=== PATIENT | female | born 1935 | race Caucasian/White ===

== ENCOUNTER 2016-10-09 13:34 | Inpatient (IN) | payer OTHER, MEDICARE ==
[~2016-10-09] VITALS: Ht 149.9 cm; Wt 52.1 kg
[2016-10-09] VITALS (10 sets, daily range): BP systolic 84–132; BP diastolic 50–64; PULSE 85–125; RESP 16–28; TEMP 98–100.5; O2SAT 77–99
[~2016-10-09 13:34] MED LIST: ALBU.5I NEB; ALBU17I INH; ALLO100T PO; FLUT50I NASAL; GABA100C4 PO; LAMO25 PO; LEXA20TA PO; LOMO PO; NICO21DI2 TD; PRED20 PO; SERO50TA PO; SYMB160A INH; THERM PO; THIA100T PO; VITA-13 PO; Z.0.OXYGEN INH; ZITH250T PO
--- NOTE | 2016-10-09 13:44 | PD ---
HPI Chief Complaint: Respiratory Symptoms Time Seen by Provider: 13:37 Travel History International Travel<30 days: No Contact w/Intl Traveler<30days: No Traveled to known affect area: No History of Present Illness HPI This is an 80-year-old female who has a history of COPD who is on oxygen at home who presents to the emergency department with increasing trouble breathing , constant, severe, worsening over the past 4 days associated with some yellow sputum production and a fever of 100.5. History is limited due to patient's clinical condition. PFSH Past Medical History Arthritis: Yes Asthma: No Autoimmune Disease: No Bipolar Disorder: Yes Anxiety: Yes Depression: Yes Heart Rhythm Problems: No Cancer: Yes (breast CA) Cardiovascular Problems: No High Cholesterol: No Chemotherapy: Yes (18 years ago) Chest Pain: No Congestive Heart Failure: No COPD: Yes Cerebrovascular Accident: No Coronary Artery Disease: No Diabetes: No Diminished Hearing: No Endocrine: No GERD: Yes Genitourinary: No Hiatal Hernia: No Immune Disorder: No Kidney Stones: No Musculoskeletal: Yes (FX R PELVIS 2013 FX R HUMERUS) Neurologic: Yes Psychiatric: Yes (Reports being diagnosed with Bipolar in 2009. 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)) Genitourinary Surgery: No Hysterectomy: Yes Insulin Pump: No Joint Replacement: No Mastectomy: Yes (LT) Neurologic Surgery: No Oral Surgery: No Pacemaker: No Thoracic Surgery: No Other Surgery: Yes (PART OF COLON REMOVED) Social History Alcohol Use: Yes (2-3 COCKTAILS PER DAY) Tobacco Use: Yes (quit 2 days ago) Substance Use: No Allergies-Medications (Allergen,Severity, Reaction): Coded Allergies: Codeine (Verified Adverse Reaction, Severe, Nausea/Vomiting, 09/11/16) Reported Meds & Prescriptions Reported Meds & Active Scripts Active Reported Lomotil (Diphenoxylate-Atropine) 2.5-0.025 Mg Tab 1 Tab PO 2-3 TIMES DAILY PRN Escitalopram (Escitalopram Oxalate) 20 Mg Tab 20 Mg PO DAILY Theragran-M (Multiple Vitamins W/ Minerals) 1 Tab 1 Tab PO DAILY Seroquel (Quetiapine Fumarate) 50 Mg Tab 100 Mg PO HS Allopurinol 100 Mg Tab 100 Mg PO DAILY Gabapentin 100 Mg Cap 100 Mg PO TID Lamictal (Lamotrigine) 25 Mg Tab 50 Mg PO BID Vitamin B-1 (Thiamine HCl) 100 Mg Tab 100 Mg PO DAILY Vitamin D3 (Cholecalciferol) 2,000 Unit Tab 2,000 Units PO DAILY Review of Systems ROS Limitations: Clinical Condition Physical Exam Narrative GENERAL: Frail elderly female in moderate respiratory distress SKIN: Warm and dry. HEAD: Atraumatic. Normocephalic. EYES: Pupils equal and round. No injection or drainage. ENT: Moist mucous membranes NECK: Trachea midline. CARDIOVASCULAR: Regular rate and rhythm. No murmur appreciated. RESPIRATORY: Using accessory muscles, poor air movement, prolonged expiratory phase, speaking 2-3 word sentences. GASTROINTESTINAL: Abdomen soft, non-tender, nondistended. MUSCULOSKELETAL: No obvious deformities. NEUROLOGICAL: Awake and alert. No obvious cranial nerve deficits. Moving all extremities. PSYCHIATRIC: Appropriate mood and affect; insight and judgment normal. Data Data Last Documented VS Vital Signs Date Time Temp Pulse Resp B/P Pulse Ox O2 Delivery O2 Flow Rate FiO2 10/09/16 13:46 97 Non-Rebreather 10/09/16 13:38 28 10/09/16 13:35 100.5 125 132/64 Orders Electrocardiogram (10/09/16 ) Complete Blood Count With Diff (10/09/16 13:41) Comprehensive Metabolic Panel (10/09/16 13:41) B-Type Natriuretic Peptide (10/09/16 13:41) Act Partial Throm Time (Ptt) (10/09/16 13:41) Prothrombin Time / Inr (Pt) (10/09/16 13:41) Troponin I (10/09/16 13:41) Arterial Blood Gas (Abg) (10/09/16 13:41) Influenzae A/B Antigen (10/09/16 13:41) Iv Access Insert/Monitor (10/09/16 13:41) Ecg Monitoring (10/09/16 13:41) Oximetry (10/09/16 13:41) Oxygen Administration (10/09/16 13:41) Chest, Single Ap (10/09/16 13:41) Sodium Chloride 0.9% Flush (Ns Flush) (10/09/16 13:45) Methylprednisolone So Succ Inj (Solumedr (10/09/16 13:45) Albuterol-Ipratropium Neb (Duoneb Neb) (10/09/16 13:45) Resp Bipap / Cpap Non Invas Vt (10/09/16 13:41) Blood Culture (10/09/16 14:24) Lactic Acid (10/09/16 14:24) Cefepime Inj (Maxipime Inj) (10/09/16 14:30) Azithromycin Inj (Zithromax Inj) (10/09/16 14:30) Acetaminophen (Tylenol) (10/09/16 14:30) Sodium Chlor 0.9% 1000 Ml Inj (Ns 1000 M (10/09/16 16:00) Sodium Chlor 0.9% 1000 Ml Inj (Ns 1000 M (10/09/16 16:00) Admit Order (Ed Use Only) (10/09/16 16:07) Labs Laboratory Tests Test 10/09/16 14:30 White Blood Count 18.0 TH/MM3 Red Blood Count 4.82 MIL/MM3 Hemoglobin 14.1 GM/DL Hematocrit 42.4 % Mean Corpuscular Volume 87.9 FL Mean Corpuscular Hemoglobin 29.2 PG Mean Corpuscular Hemoglobin 33.2 % Concent Red Cell Distribution Width 14.4 % Platelet Count 143 TH/MM3 Mean Platelet Volume 9.7 FL Neutrophils (%) (Auto) 80.5 % Lymphocytes (%) (Auto) 9.1 % Monocytes (%) (Auto) 10.3 % Eosinophils (%) (Auto) 0.0 % Basophils (%) (Auto) 0.1 % Neutrophils # (Auto) 14.5 TH/MM3 Lymphocytes # (Auto) 1.6 TH/MM3 Monocytes # (Auto) 1.9 TH/MM3 Eosinophils # (Auto) 0.0 TH/MM3 Basophils # (Auto) 0.0 TH/MM3 CBC Comment AUTO DIFF Differential Total Cells 100 Counted Neutrophils % (Manual) 47 % Band Neutrophils % 31 % Lymphocytes % 8 % Monocytes % 10 % Neutrophils # (Manual) 14.8 TH/MM3 Metamyelocytes 4 % Differential Comment FINAL DIFF MANUAL Toxic Granulation 1+ Toxic Vacuolation PRESENT Platelet Estimate LOW Platelet Morphology Comment NORMAL Red Cell Morphology Comment NORMAL Prothrombin Time 14.4 SEC Prothromb Time International 1.3 RATIO Ratio Activated Partial 32.2 SEC Thromboplast Time Sodium Level 135 MEQ/L Potassium Level 4.3 MEQ/L Chloride Level 97 MEQ/L Carbon Dioxide Level 30.0 MEQ/L Anion Gap 8 MEQ/L Blood Urea Nitrogen 21 MG/DL Creatinine 1.05 MG/DL Estimat Glomerular Filtration 50 ML/MIN Rate Random Glucose 114 MG/DL Lactic Acid Level 2.8 mmol/L Calcium Level 8.6 MG/DL Total Bilirubin 1.1 MG/DL Aspartate Amino Transf 29 U/L (AST/SGOT) Alanine Aminotransferase 25 U/L (ALT/SGPT) Alkaline Phosphatase 118 U/L Troponin I LESS THAN 0.02 NG/ML B-Type Natriuretic Peptide 344 PG/ML Total Protein 6.8 GM/DL Albumin 3.1 GM/DL MDM Medical Decision Making Medical Screen Exam Complete: Yes Emergency Medical Condition: Yes Interpretation(s) Fever, tachycardia, tachypnea Leukocytosis 31% bandemia Lactic acid is 2.8 BNP is 344 Chest x-ray: Worsening bilateral infiltrates Differential Diagnosis Pneumonia, COPD exacerbation, urinary tract infection Narrative Course This is an 80-year-old female who presents to the emergency department with a history of COPD with increasing difficulty breathing and fever. She was in respiratory distress on arrival with accessory muscle use unable to speak full sentences. She was placed on BiPAP and given serial DuoNeb's as well as IV steroids. Cultures were obtained and the patient was given cefepime and azithromycin. She was given IV hydration. She is found to be septic with a 31 % bandemia and a lactic acid of 2.8. Patient will be admitted to the intensive care area and it for close observation given her age. Critical Care Narrative Aggregate critical care time was 45 minutes. Time to perform other separately billable procedures was not included in the critical care time. My time did not include minutes spent treating any other patients simultaneously or on activities that did not directly contribute to the patient's treatment. The services I provided to this patient were to treat and/or prevent clinically significant deterioration that could result in: Disability, I provided critical care services requiring my management, as noted below: Chart data review, documentation time, medication orders and management, vital sign assessments/reviewing monitor data, ordering and reviewing lab tests, ordering and interpreting/reviewing x-rays and diagnostic studies, care of the patient and discussion of the patient with the admitting physicians. Diagnosis Primary Impression: probable bibasilar pneumonia Admitting Information Admitting Physician Requests: Admit Corine hPelps MD Oct 09, 2016 13:44
[2016-10-09] MEDS ORDERED: SODIUM CHLORIDE 0.9% FLUSH 5 ML FLUSH IVF PRN (13:45)
[2016-10-09] MEDS ORDERED: methylPREDNISolone SOD SUCC 125 MG/2 ML VIAL IVP ONE (13:45)
--- NOTE | 2016-10-09 14:14 | RADRPT ---
EXAM DATE/TIME: 10/09/2016 13:43 [facility] COMPARISON: CHEST SINGLE AP, September 11, 2016, 10:51. INDICATIONS : Shortness of breath. MEDICAL HISTORY : Chronic obstructive pulmonary disease. Carcinoma, breast. Smoker. SURGICAL HISTORY : Mastectomy, left. ENCOUNTER: Initial ACUITY: 1 day PAIN SCORE: 0/10 LOCATION: Bilateral chest FINDINGS: There is cardiomegaly, hyperinflation and increasing alveolar and interstitial opacity in the right m id to lower lung zone and left midlung. There are no effusions. Left axillary clips and right shoulde r arthroplasty. Calcified granuloma left lung base. CONCLUSION: Worsening infiltrates bilaterally. Angel Yanez MD on October 09, 2016 at 14:12 Board Certified Radiologist. This report was verified electronically.
[2016-10-09] MEDS ORDERED: CEFEPIME INJ 2,000 MG in SODIUM CHLORIDE 0.9% INJ 100 ML IV ONE (14:30)
[2016-10-09] MEDS ORDERED: AZITHROMYCIN INJ 500 MG in SODIUM CHLOR 0.9% 250 ML INJ 250 ML IV ONE (14:30)
[2016-10-09] MEDS ORDERED: ACETAMINOPHEN 325 MG TAB PO ONE (14:30)
[2016-10-09] MEDS: RESP: ALBUTEROL 2.5 MG/IPRATROPIUM 0.5 MG NEB (SCH) INH ×3 (14:38→23:06)
[2016-10-09 14:59] LABS: AUTOMATED NEUTROPHIL # 14.5 TH/MM3 (1.8-7.7); BASOPHIL % 0.1 % (0.0-2.0); HEMATOCRIT 42.4 % (35.0-46.0); LYMPH % 9.1 % (9.0-44.0); LYMPHOCYTE # 1.6 TH/MM3 (1.0-4.8); MEAN CELL VOLUME 87.9 FL (80.0-100.0); MEAN CORPUSCULAR HEMOGLOBIN 29.2 PG (27.0-34.0); MEAN CORPUSCULAR HGB CONC 33.2 % (32.0-36.0); MONO % 10.3 % (0.0-8.0); NEUT % 80.5 % (16.0-70.0); PLATELET COUNT 143 TH/MM3 (150-450); RED BLOOD COUNT 4.82 MIL/MM3 (4.00-5.30); RED CELL DISTRIBUTION WIDTH 14.4 % (11.6-17.2)
[2016-10-09 15:02] LABS: HEMO FLAGS AUTO DIFF
[2016-10-09 15:12] LABS: APTT (PATIENT) 32.2 SEC (24.3-30.1); INTERNATIONAL NORMALIZED RATIO 1.3 RATIO; PROTHROMBIN TIME - PATIENT 14.4 SEC (9.8-11.6)
[2016-10-09 15:14] LABS: ALT (GPT) 25 U/L (10-53); ANION GAP 8 MEQ/L (5-15); AST (GOT) 29 U/L (15-37); BLOOD UREA NITROGEN 21 MG/DL (7-18); CHLORIDE 97 MEQ/L (98-107); GLOMERULAR FILTRATION RATE 50 ML/MIN (>89); POTASSIUM 4.3 MEQ/L (3.5-5.1); SODIUM (NA) 135 MEQ/L (136-145)
[2016-10-09 15:18] LABS: ALKALINE PHOSPHATASE 118 U/L (45-117); TOTAL BILIRUBIN ADULT 1.1 MG/DL (0.2-1.0)
[2016-10-09 15:32] LABS: BANDS 31 % (0-6); METAMYELOCYTES 4 % (0-1); NEUTROPHIL # MANUAL DIFF 14.8 TH/MM3 (1.8-7.7); POLYS (SEG NEUTROPHILS) 47 % (16-70); WBC DIFF SAMPLE 100
[2016-10-09 15:33] LABS: PLATELET ESTIMATE SMEAR LOW (NORMAL); PLATELET MORPHOLOGY NORMAL (NORMAL); SCAN/DIFF FINAL DIFF MANUAL; TOXIC GRANULATION 1+ (NORMAL); TOXIC VACUOLATION PRESENT (NONE SEEN)
[2016-10-09] MEDS ORDERED: VITA200012 PO (15:59)
[2016-10-09] MEDS ORDERED: LAMO25 PO (15:59)
[2016-10-09] MEDS ORDERED: LOMO2.5T PO (15:59)
[2016-10-09] MEDS ORDERED: ESCI20TA PO (15:59)
[2016-10-09] MEDS ORDERED: SERO50TA PO (15:59)
[2016-10-09] MEDS ORDERED: VITA100T54 PO (15:59)
[2016-10-09] MEDS ORDERED: THERTAB27 PO (15:59)
[2016-10-09] MEDS ORDERED: ALLO100T PO (15:59)
[2016-10-09] MEDS ORDERED: GABA100C4 PO (15:59)
[2016-10-09] MEDS ORDERED: SODIUM CHLOR 0.9% 1000 ML INJ 1,000 ML IV SCH ×2 (16:00)
[2016-10-09] MEDS ORDERED: MISCELLANEOUS NURSING INFORMATION XX SCH (16:15)
[2016-10-09] MEDS ORDERED: POTASSIUM PHOSPHATE INJ 30 MMOL in SODIUM CHLOR 0.9% 250 ML INJ 250 ML IV PRN (16:15)
[2016-10-09] MEDS ORDERED: POTASSIUM CHLOR 20 MEQ PREMIX 100 ML IV PRN ×2 (16:15)
[2016-10-09] MEDS ORDERED: DEXTROSE 50% IN WATER 50 ML VIAL(D50) IV PUSH PRN (16:15)
[2016-10-09] MEDS ORDERED: ACETAMINOPHEN 325 MG TAB PO PRN (16:15)
[2016-10-09] MEDS ORDERED: POTASSIUM PHOSPHATE MONOBASIC 500 MG TAB PO PRN (16:15)
[2016-10-09] MEDS ORDERED: POTASSIUM PHOSPHATE MONOBASIC 500 MG TAB PO/TUBE PRN (16:15)
[2016-10-09] MEDS ORDERED: POTASSIUM CHLOR 40 MEQ PREMIX 100 ML IV PRN ×2 (16:15)
[2016-10-09] MEDS ORDERED: MAGNESIUM OXIDE 400 MG TAB PO PRN (16:15)
[2016-10-09] MEDS ORDERED: ONDANSETRON HCL 4 MG/2 ML VIAL IV PRN (16:15)
[2016-10-09] MEDS ORDERED: POTASSIUM CL 40 MEQ/30 ML LIQ UDC PO/TUBE PRN ×2 (16:15)
[2016-10-09] MEDS ORDERED: MAGNESIUM SULFATE INJ 4 GM in SODIUM CHLORIDE 0.9% INJ 92 ML IV PRN (16:15)
[2016-10-09] MEDS ORDERED: CHLORHEXIDINE GLUCONATE 2 % 1 PACK (2 CLOTHS) TOP PRN (16:15)
[2016-10-09] MEDS ORDERED: SODIUM CHLORIDE 0.9% FLUSH 5 ML FLUSH IV FLUSH PRN (16:15)
[2016-10-09] MEDS ORDERED: RESP: ALBUTEROL 2.5 MG/IPRATROPIUM 0.5 MG NEB (PRN) INH (16:15)
[2016-10-09] MEDS ORDERED: SODIUM PHOSPHATE INJ 30 MMOL in SODIUM CHLOR 0.9% 250 ML INJ 240 ML IV PRN (16:15)
[2016-10-09] MEDS ORDERED: MAGNESIUM SULFATE INJ 2 GM in SODIUM CHLORIDE 0.9% INJ 96 ML IV PRN (16:15)
--- NOTE | 2016-10-09 17:26 | HHI.HP ---
[facility] Service Critical Care Medicine Primary Care Physician Clem Harris MD Admission Diagnosis pneumonia, sepsis Diagnosis: Chief Complaint: shortness of breath Travel History International Travel<30 Days: No Contact w/Intl Traveler <30 Da: No Traveled to Known Affected Are: No History of Present Illness this is an 80yF with h/o o2 dependent COPD on 2L o2 by NC at night at home, bipolar disorder, and peripheral neuropathy after a pelvic fracture who presented with 1 week of increasing shortness of breath, fatigue, chills, weakness, fatigue, lightheadedness. She was found to have a RLL pneumonia on CXR and a leukocytosis of 18. She denies chest pain, N/V/D, syncope. She endorses fever. she states that she is fairly ambulatory and can do most all of her own ADLs except complex ones like grocery shopping. She states that she has not been doing these as much over the last week due to fatigue. Of note, over the past 12 months, she has been hospitalized a number of times for various health concerns, including a recent diagnosis of Bipolar disorder. I had a discussion with the patient about some of the goals of her care. When I brought up intubation and mechanical ventilation, she states she would not want that, as it would be uncomfortable, and she would much rather be made comfortable and in peace than undergo a course of mechanical ventilation. Also, when discussing CPR, she states she would rather naturally and not undergo CPR, if it came to that. Otherwise, our goals remain aggressive. congruent with the patient's wishes, I have made her DNR/DNI. Her would be her medical decision-maker if she were to become incapacitated, and she has documentation of this. Review of Systems Constitutional: COMPLAINS OF: Fatigue, Fever, Chills, Dizziness, DENIES: Diaphoretic episodes Respiratory: COMPLAINS OF: Cough, Wheezing, Sputum production, Shortness of breath, DENIES: Hemoptysis Cardiovascular: COMPLAINS OF: Dyspnea on Exertion, DENIES: Chest pain, Palpitations, Syncope, Lower Extremity Edema Gastrointestinal: DENIES: Abdominal pain, Constipation, Diarrhea, Nausea, Vomiting Neurologic: DENIES: Headache, Localized weakness Past Family Social History Allergies: Coded Allergies: Codeine (Verified Adverse Reaction, Severe, Nausea/Vomiting, 09/11/16) Past Medical History Arthritis Bipolar disorder, diagnosed in 2009 Anxiety Depression History of breast cancer History of prior chemotherapy 18 years ago COPD on 2 L home oxygen at night GERD Right-sided pelvic fracture 2012 Right-sided humerus fracture 2012 Left eye blindness Past Surgical History Colon resection Cholecystectomy Appendectomy Left detached retina Hysterectomy Mastectomy on the left Reported Medications Nicotine Patch (Nicotine) 21 Mg/24 Hr Patch 1 Patch TD DAILY Prednisone 20 Mg Tab 40 Mg PO DAILY Zithromax (Azithromycin) 250 Mg Tab 500 Mg PO Q24H Vitamin D3 (Cholecalciferol) 1,000 Unit Tab 2,000 Units PO 2 DAILY Ventolin Hfa (Albuterol Sulfate) 108 Mcg/Act Aer 2 Puff INH Q6HR Thiamine HCl 100 Mg Tab 100 Mg PO DAILY Seroquel 50 mg (Quetiapine Fumarate) 50 Mg Tab 50 Mg PO DIRECTED 1 in a.m. 2 at at bedtime Lamictal (Lamotrigine) 25 Mg Tab 50 Mg PO 2 PO BID Fluticasone Propionate 50 Mcg/Act Spr 1 [place] NASAL BID Lomotil (Diphenoxylate HCl/Atropine) 1 Tab Tab 1 Tab PO TID Symbicort (Budesonide/Formoterol Fumarate) 160 Mcg/4.5 Mcg Aer 2 Puff INH Q12HR Oxygen (O2) (Miscellaneous Medication) Inha 2 L INH CONTINUOUS 30 Days Thera M Plus (Multivitamins/Minerals Therap) 1 Tab Tab 1 Tab PO DAILY 30 Days Thiamine HCl 100 Mg Tab 100 Mg PO DAILY 30 Days Lomotil (Diphenoxylate HCl/Atropine) 1 Tab Tab 1 Tab PO TID 30 Days Symbicort (Budesonide/Formoterol Fumarate) 160 Mcg/4.5 Mcg Aer 2 Puff INH Q12HR 30 Days Gabapentin 100 Mg Cap 100 Mg PO TID Allopurinol 100 Mg Tab 100 Mg PO DAILY Proventil Conc Ud 0.5% (2.5 Mg/0.5 Ml) (Albuterol Sulfate) 2.5 Mg/0.5 Ml Inha 2.5 Mg NEB Q6HR NEB Lexapro (Escitalopram Oxalate) 20 Mg Tab 20 Mg PO DAILY Active Ordered Medications See MAR Family History Reviewed and found to be noncontributory to her acute illness Social History To 3 cocktails today. Active smoker. Denies drugs of abuse. Physical Exam Vital Signs Vital Signs Date Time Temp Pulse Resp B/P Pulse Ox O2 Delivery O2 Flow Rate FiO2 10/09/16 13:46 97 Non-Rebreather 10/09/16 13:38 28 93 Non-Rebreather 10/09/16 13:35 100.5 125 28 132/64 77 Physical Exam GENERAL: Elderly female, lying in bed, mild distress due to dyspnea HEENT: Left pupil 4 mm, nonreactive. Right pupil 2 mm and reactive. Mucous membranes are moist. NECK: Trachea is midline. There is no JVD. CHEST: Mildly labored respirations. Mild tachypnea. Nasal cannula oxygen. SPO2 96%. Coarse crackles in the bilateral upper lobes, scant wheezes in the bilateral lung kapadia, significant fine rales in the right lower lung field. CARDIOVASCULAR: Normal rate, regular rhythm. S1 and S2 without appreciable murmurs. ABDOMEN: Soft, nontender, nondistended. No guarding. MUSCULOSKELETAL: Peripheral edema. Distal pulses 2+. NEUROLOGICAL: RASS 0. CAM -. Follows commands in all four extremities. no gross focal motor or sensory deficits. Laboratory Laboratory Tests Test 10/09/16 14:30 White Blood Count 18.0 Red Blood Count 4.82 Hemoglobin 14.1 Hematocrit 42.4 Mean Corpuscular Volume 87.9 Mean Corpuscular Hemoglobin 29.2 Mean Corpuscular Hemoglobin 33.2 Concent Red Cell Distribution Width 14.4 Platelet Count 143 Mean Platelet Volume 9.7 Neutrophils (%) (Auto) 80.5 Lymphocytes (%) (Auto) 9.1 Monocytes (%) (Auto) 10.3 Eosinophils (%) (Auto) 0.0 Basophils (%) (Auto) 0.1 Neutrophils # (Auto) 14.5 Lymphocytes # (Auto) 1.6 Monocytes # (Auto) 1.9 Eosinophils # (Auto) 0.0 Basophils # (Auto) 0.0 CBC Comment AUTO DIFF Differential Total Cells 100 Counted Neutrophils % (Manual) 47 Band Neutrophils % 31 Lymphocytes % 8 Monocytes % 10 Neutrophils # (Manual) 14.8 Metamyelocytes 4 Differential Comment FINAL DIFF MANUAL Toxic Granulation 1+ Toxic Vacuolation PRESENT Platelet Estimate LOW Platelet Morphology Comment NORMAL Red Cell Morphology Comment NORMAL Prothrombin Time 14.4 Prothromb Time International 1.3 Ratio Activated Partial 32.2 Thromboplast Time Sodium Level 135 Potassium Level 4.3 Chloride Level 97 Carbon Dioxide Level 30.0 Anion Gap 8 Blood Urea Nitrogen 21 Creatinine 1.05 Estimat Glomerular Filtration 50 Rate Random Glucose 114 Lactic Acid Level 2.8 Calcium Level 8.6 Total Bilirubin 1.1 Aspartate Amino Transf 29 (AST/SGOT) Alanine Aminotransferase 25 (ALT/SGPT) Alkaline Phosphatase 118 Troponin I LESS THAN 0.02 B-Type Natriuretic Peptide 344 Total Protein 6.8 Albumin 3.1 Date/Time Procedure Status Source Growth 10/09/16 14:40 Aerobic Blood Culture Received Blood Peripheral Pending 10/09/16 14:40 Anaerobic Blood Culture Received Blood Peripheral Pending Result Diagram: 10/09/16 1430 10/09/16 1430 Assessment and Plan Assessment and Plan Assessment: This is an 80-year-old female with history of oxygen dependent COPD and bipolar disorder who presents with acute shortness of breath and fatigue and found to have a right lower lobe pneumonia and likely COPD exacerbation. Given her age and medical comorbidities, I think is completely appropriate to admit her to the ICU for close observation. Patient states she does not like her BiPAP mask, and acid if she could not use it. I counseled her this was a risk if she was willing to take it that she would get worse off the BiPAP. Although, if this is what the patient wishes, she does understand that she is an increased risk of arthritic conversation, and also knows that she is a DNI. I gave her the option and told her it was okay. She took herself off BiPAP, understanding this. Plan: 1. COPD Exacerbation -- methylprednisolone 60mg iv q12h -- nebs q4h and q2h prn -- BiPAP as needed. -- wean o2 by NC for goal spo2 > 90% 2. RLL community acquired pneumonia -- Continue cefepime 2gm iv q8h -- continue azithromycin 500mg iv q24h -- f/u sputum cultures, blood cultures, urine cultures 3. Bipolar disorder -- continue home psych meds 4. Peripheral neuropathy -- continue home gabapentin 100mg qhs 5. Acute protein calorie malnutrition- moderate -- NPO for now. if she remains stable, will perform bedside swallow assessment and slowly advance him to clears. 6. Prophylaxis -- SCDs, SQH -- does not meet evidence based criteria for GI prophylaxis at this time. 7. Code Status -- DNR/DNI per the patient's request. --daily CBC, BMP. Code Status DNR/DNI Ronnie Oviedo MD Oct 09, 2016 17:25
[2016-10-09] MEDS: SODIUM CHLOR 0.9% 1000 ML INJ 1,000 ML IV SCH (17:42)
[2016-10-09 19:56] LABS: BLOOD GAS BASE EXCESS 3.1 mmol/L (-2-2); BLOOD GAS CARBOXYHEMOGLOBIN 2.3 % (0-4); BLOOD GAS HCO3 29 mmol/L (22-26); BLOOD GAS METHEMOGLOBIN 2.2 % (0-2); BLOOD GAS O2 HGB SATURATION 94 % (90-100); BLOOD GAS OXYGEN CONTENT 18.6 Vol % (12.0-20.0); BLOOD GAS PCO2 55 mmHg (38-42); BLOOD GAS PO2 132 mmHG (61-120); BLOOD GAS TOTAL HGB 13.9 G/DL (12.0-16.0); TEMP CORR TO 98.6
[2016-10-09 19:57] LABS: CRITICAL VALUE YES; DRAW SITE RT RADIAL; FIO2 100 %; LITER FLOW 15 L/M; NUMBER OF ARTERIAL PUNCTURES 1; OXYGEN DEVICE NONREBREATHER; STAT YES; ULNAR PULSE PRESENT
[2016-10-09 19:58] LABS: BLOOD GAS BASE EXCESS 4.1 mmol/L (-2-2); BLOOD GAS CARBOXYHEMOGLOBIN 2.1 % (0-4); BLOOD GAS HCO3 29 mmol/L (22-26); BLOOD GAS METHEMOGLOBIN 2.2 % (0-2); BLOOD GAS O2 HGB SATURATION 91 % (90-100); BLOOD GAS OXYGEN CONTENT 17.7 Vol % (12.0-20.0); BLOOD GAS PCO2 54 mmHg (38-42); BLOOD GAS PO2 75 mmHG (61-120); BLOOD GAS TOTAL HGB 13.9 G/DL (12.0-16.0); TEMP CORR TO 98.6
[2016-10-09 19:59] LABS: CRITICAL VALUE YES; OXYGEN DEVICE BIPAP
[2016-10-09 20:00] LABS: DRAW SITE RT RADIAL; FIO2 50 %; NUMBER OF ARTERIAL PUNCTURES 1; STAT NO; ULNAR PULSE PRESENT; VENT SETTINGS CPAP 5/PS 10
[2016-10-09] MEDS: SODIUM CHLORIDE 0.9% FLUSH 5 ML FLUSH IV FLUSH SCH (21:00)
[2016-10-09] MEDS: HEPARIN SODIUM - SQ 10,000 UNITS/ML VIAL SQ SCH (21:18)
[2016-10-09] MEDS: INSULIN NovoLIN REGULAR SUPPLEMENTAL SCALE SQ SCH ×2 (21:19→23:50)
[2016-10-09] MEDS: GABAPENTIN 100 MG CAP PO SCH (21:30)
[2016-10-09] MEDS: QUEtiapine FUMARATE 100 MG TAB PO SCH (21:31)
[2016-10-09] MEDS: DOCUSATE SODIUM 50 MG/SENNA 8.6 MG TAB PO SCH (21:31)
[2016-10-09] MEDS: lamoTRIgine 25 MG TAB PO SCH (21:31)
[2016-10-09] MEDS ORDERED: SODIUM CHLOR 0.9% 1000 ML INJ 1,000 ML IV ONE (23:15)
[2016-10-10] VITALS (14 sets, daily range): BP systolic 94–133; BP diastolic 50–75; PULSE 72–102; RESP 16–24; TEMP 97.5–98.6; O2SAT 94–96
[2016-10-10] MEDS: CHLORHEXIDINE GLUCONATE 2 % 1 PACK (2 CLOTHS) TOP SCH (00:55)
[2016-10-10] MEDS: HEPARIN SODIUM - SQ 10,000 UNITS/ML VIAL SQ SCH ×3 (00:55→17:44)
[2016-10-10] MEDS ORDERED: methylPREDNISolone SOD SUCC 125 MG/2 ML VIAL IV PUSH SCH (02:00)
[2016-10-10] MEDS: RESP: ALBUTEROL 2.5 MG/IPRATROPIUM 0.5 MG NEB (SCH) INH ×5 (03:24→23:56)
[2016-10-10] MEDS: INSULIN NovoLIN REGULAR SUPPLEMENTAL SCALE SQ SCH ×4 (05:26→23:58)
[2016-10-10] MEDS: CEFEPIME INJ 2,000 MG in SODIUM CHLORIDE 0.9% INJ 100 ML IV SCH ×2 (05:26→17:43)
--- NOTE | 2016-10-10 06:05 | RADRPT ---
EXAM DATE/TIME: 10/10/2016 05:03 [facility] COMPARISON: CHEST SINGLE AP, October 09, 2016, 13:43. INDICATIONS : Short of breath. MEDICAL HISTORY : Chronic obstructive pulmonary disease. Carcinoma, breast. Smoker. SURGICAL HISTORY : Mastectomy, left. ENCOUNTER: Subsequent ACUITY: 2 days PAIN SCORE: 0/10 LOCATION: Bilateral chest FINDINGS: A single portable frontal view of the chest shows bilateral pulmonary infiltrates. This is most prono unced within the right base. No significant change from the prior study. Tiny effusions. Heart is nor mal in size. Prosthetic humeral head on the right. CONCLUSION: No significant change. Julio Pagan Jr., MD on October 10, 2016 at 6:02 Board Certified Radiologist. This report was verified electronically.
[2016-10-10 06:15] LABS: BLOOD GAS BASE EXCESS -1.7 mmol/L (-2-2); BLOOD GAS CARBOXYHEMOGLOBIN 1.3 % (0-4); BLOOD GAS HCO3 24 mmol/L (22-26); BLOOD GAS METHEMOGLOBIN 1.3 % (0-2); BLOOD GAS O2 HGB SATURATION 89 % (90-100); BLOOD GAS OXYGEN CONTENT 15.9 Vol % (12.0-20.0); BLOOD GAS TOTAL HGB 12.7 G/DL (12.0-16.0)
[2016-10-10 06:16] LABS: TEMP CORR TO 98.6
[2016-10-10 06:18] LABS: CRITICAL VALUE YES
[2016-10-10 06:19] LABS: BLOOD GAS PCO2 50 mmHg (38-42); BLOOD GAS PO2 69 mmHg (61-120); LITER FLOW 4 L/M; OXYGEN DEVICE NASAL CANNULA
[2016-10-10 06:20] LABS: DRAW SITE RT RADIAL; FIO2 35 %; NUMBER OF ARTERIAL PUNCTURES 1; STAT NO; ULNAR PULSE PRESENT
[2016-10-10 06:51] LABS: HEMATOCRIT 39.3 % (35.0-46.0); MEAN CELL VOLUME 89.1 FL (80.0-100.0); MEAN CORPUSCULAR HEMOGLOBIN 29.2 PG (27.0-34.0); MEAN CORPUSCULAR HGB CONC 32.7 % (32.0-36.0); PLATELET COUNT 132 TH/MM3 (150-450); RED BLOOD COUNT 4.41 MIL/MM3 (4.00-5.30); RED CELL DISTRIBUTION WIDTH 14.5 % (11.6-17.2); REVIEW FLAG FINAL
[2016-10-10 07:05] LABS: BICARBONATE 25.9 MEQ/L (21.0-32.0); POTASSIUM 4.1 MEQ/L (3.5-5.1)
[2016-10-10] MEDS: DOCUSATE SODIUM 50 MG/SENNA 8.6 MG TAB PO SCH ×2 (09:00→20:57)
[2016-10-10] MEDS: SODIUM CHLORIDE 0.9% FLUSH 5 ML FLUSH IV FLUSH SCH ×2 (09:00→20:58)
[2016-10-10] MEDS: ESCITALOPRAM OXALATE 20 MG TAB PO SCH (11:04)
[2016-10-10] MEDS: ALLOPURINOL 100 MG TAB PO SCH (11:04)
[2016-10-10] MEDS: THIAMINE HCL 100 MG TAB PO SCH (11:04)
[2016-10-10] MEDS: lamoTRIgine 25 MG TAB PO SCH ×2 (11:04→20:58)
[2016-10-10] MEDS: GABAPENTIN 100 MG CAP PO SCH ×3 (11:04→17:44)
--- NOTE | 2016-10-10 13:29 | HHI.PR ---
Subjective Remarks Follow-up pneumonia/ 10/10/16-patient seen and examined; reports significant improvement or shortness of breath denies any cough. Currently afebrile. She thinks she does not need to use BiPAP. Objective Vitals Vital Signs Date Time Temp Pulse Resp B/P Pulse Ox O2 Delivery O2 Flow Rate FiO2 10/10/16 07:50 94 Nasal Cannula 3.00 10/10/16 06:00 94 10/10/16 04:00 75 10/10/16 03:00 98.6 72 24 98/55 95 10/10/16 02:00 72 10/10/16 00:00 85 10/09/16 23:00 85 24 110/52 97 10/09/16 22:45 98.0 85 16 91/55 90 10/09/16 21:00 92 16 89/53 94 Nasal Cannula 2 10/09/16 20:20 93 Nasal Cannula 5.00 10/09/16 20:00 87 16 95/53 93 Nasal Cannula 2 10/09/16 19:00 88 16 91/50 95 Nasal Cannula 2 10/09/16 17:44 94 22 91/54 99 Nasal Cannula 5 10/09/16 17:02 102 22 84/52 92 Nasal Cannula 5 10/09/16 13:58 99 75 10/09/16 13:46 97 Non-Rebreather 10/09/16 13:38 28 93 Non-Rebreather 10/09/16 13:35 100.5 125 28 132/64 77 I/O 10/09/16 10/09/16 10/09/16 10/10/16 10/10/16 10/10/16 07:00 15:00 23:00 07:00 15:00 23:00 Intake Total 1600 ml Balance 1600 ml Intake IV Total 1600 ml # Voids 3 Result Diagram: 10/10/16 0553 10/10/16 0553 Imaging Last Impressions Chest X-Ray 10/10/16 0600 Signed Impressions: Service Date/Time: Monday, October 10, 2016 05:03 - CONCLUSION: No significant change. Julio Pagan Jr., MD Objective Remarks GENERAL: NAD SKIN: Warm and dry. HEAD: Normocephalic. EYES: No scleral icterus. No injection or drainage. NECK: Supple, trachea midline. No JVD or lymphadenopathy. CARDIOVASCULAR: Regular rate and rhythm without murmurs, gallops, or rubs. RESPIRATORY: Breath sounds equal bilaterally. No accessory muscle use. GASTROINTESTINAL: Abdomen soft, non-tender, nondistended. MUSCULOSKELETAL: No cyanosis, or edema. BACK: Nontender without obvious deformity. No CVA tenderness. A/P Problem List: (1) COPD with exacerbation ICD Code: J44.1 Status: Acute (2) Community acquired pneumonia ICD Code: J18.9 Status: Acute Assessment and Plan 80-year-old female with 1. COPD Exacerbation -- Change methylprednisolone to 40mg iv q12h; add Symbicort and Spiriva -- nebs q4h and q2h prn -- BiPAP as needed. -- wean o2 by NC for goal spo2 > 90% 2. RLL community acquired pneumonia -- Continue cefepime 2gm iv q8h -- continue azithromycin 500mg iv q24h -- f/u sputum cultures, blood cultures, urine cultures 3. Bipolar disorder -- continue home psych meds 4. Peripheral neuropathy -- continue home gabapentin 100mg qhs 5. Acute protein calorie malnutrition- moderate -- Past swallow eval, start healthy diet and add ensure 3 times a day with each meal 6. Prophylaxis -- SCDs, SQH -- does not meet evidence based criteria for GI prophylaxis at this time. 7. Hypotension: Continue with gentle IV fluid hydration, consider given 1 L normal saline bolus PT consult to treat and eval Will transfer to True Brewster MD Oct 10, 2016 13:29
[2016-10-10] MEDS: AZITHROMYCIN INJ 500 MG in SODIUM CHLOR 0.9% 250 ML INJ 250 ML IV SCH (15:02)
[2016-10-10] MEDS: SODIUM CHLOR 0.9% 1000 ML INJ 1,000 ML IV SCH (15:04)
[2016-10-10] MEDS: methylPREDNISolone SOD SUCC 40 MG/1 ML VIAL IV PUSH SCH (15:36)
[2016-10-10] MEDS: BUDESONIDE-FORMOTEROL 80/4.5 MCG INHALER INH SCH (20:57)
[2016-10-10] MEDS: QUEtiapine FUMARATE 100 MG TAB PO SCH (20:57)
[2016-10-11] VITALS (9 sets, daily range): BP systolic 105–128; BP diastolic 60–79; PULSE 90–116; RESP 14–20; TEMP 96.2–98.8; O2SAT 91–95
--- NOTE | 2016-10-11 | EKG ---
Date Performed: 10/09/2016 Time Performed: 13:42:10 PTAGE: 80 years EKG: SINUS TACHYCARDIA PATTERN CONSISTENT WITH PULMONARY DISEASE RIGHT VENTRICULAR HYPERTROPHY M ODERATE T-WAVE ABNORMALITY, CONSIDER INFERIOR ISCHEMIA ABNORMAL ECG PREVIOUS TRACING : 09/11/2016 18.31 DOCTOR: Bob Montanez Interpretating Date/Time 10/10/2016 23:51:13
[2016-10-11] MEDS: HEPARIN SODIUM - SQ 10,000 UNITS/ML VIAL SQ SCH ×3 (00:13→17:51)
[2016-10-11] MEDS: methylPREDNISolone SOD SUCC 40 MG/1 ML VIAL IV PUSH SCH ×2 (00:13→15:20)
[2016-10-11 02:12] LABS: BLOOD, URINE NEG (NEG); COMMENT (UR) CATH-CULT NOT IND; CULTURE IF INDICATED CATH CULTURE NOT IND; GLUCOSE,URINE NEG (NEG); KETONE, URINE NEG (NEG); MUCUS URINE FEW /lpf (OCC); NITRITE,URINE NEG (NEG); URINE COLOR COLORLESS (YELLW/STRAW)
[2016-10-11] MEDS: CHLORHEXIDINE GLUCONATE 2 % 1 PACK (2 CLOTHS) TOP SCH (03:44)
[2016-10-11] MEDS: RESP: ALBUTEROL 2.5 MG/IPRATROPIUM 0.5 MG NEB (SCH) INH ×6 (04:14→23:59)
[2016-10-11] MEDS: CEFEPIME INJ 2,000 MG in SODIUM CHLORIDE 0.9% INJ 100 ML IV SCH ×2 (05:12→16:20)
[2016-10-11] MEDS: INSULIN NovoLIN REGULAR SUPPLEMENTAL SCALE SQ SCH ×3 (05:12→17:52)
[2016-10-11 08:17] LABS: HEMATOCRIT 35.3 % (35.0-46.0); MEAN CELL VOLUME 88.1 FL (80.0-100.0); MEAN CORPUSCULAR HEMOGLOBIN 29.1 PG (27.0-34.0); PLATELET COUNT 122 TH/MM3 (150-450); RED CELL DISTRIBUTION WIDTH 14.6 % (11.6-17.2); REVIEW FLAG FINAL; WHITE BLOOD COUNT 13.4 TH/MM3 (4.0-11.0)
[2016-10-11 08:36] LABS: BICARBONATE 28.3 MEQ/L (21.0-32.0); POTASSIUM 4.4 MEQ/L (3.5-5.1)
[2016-10-11] MEDS: TIOTROPIUM BROMIDE 18 MCG INH INH SCH (09:00)
[2016-10-11] MEDS: DOCUSATE SODIUM 50 MG/SENNA 8.6 MG TAB PO SCH ×2 (09:00→20:58)
[2016-10-11] MEDS: BUDESONIDE-FORMOTEROL 80/4.5 MCG INHALER INH SCH ×2 (09:01→20:58)
[2016-10-11] MEDS: lamoTRIgine 25 MG TAB PO SCH ×2 (09:02→20:58)
[2016-10-11] MEDS: ESCITALOPRAM OXALATE 20 MG TAB PO SCH (09:02)
[2016-10-11] MEDS: THIAMINE HCL 100 MG TAB PO SCH (09:02)
[2016-10-11] MEDS: ALLOPURINOL 100 MG TAB PO SCH (09:02)
[2016-10-11] MEDS: GABAPENTIN 100 MG CAP PO SCH ×3 (09:02→17:51)
[2016-10-11] MEDS: SODIUM CHLORIDE 0.9% FLUSH 5 ML FLUSH IV FLUSH SCH ×2 (09:04→20:58)
[2016-10-11] MEDS: SODIUM CHLOR 0.9% 1000 ML INJ 1,000 ML IV SCH (09:13)
[2016-10-11] MEDS: AZITHROMYCIN INJ 500 MG in SODIUM CHLOR 0.9% 250 ML INJ 250 ML IV SCH (15:21)
--- NOTE | 2016-10-11 16:07 | HHI.PR ---
Subjective Remarks Follow-up pneumonia/ 10/10/16-patient seen and examined; reports significant improvement or shortness of breath denies any cough. Currently afebrile. She thinks she does not need to use BiPAP. 10/11/16-patient seen and examined and currently on 4 L nasal cannula oxygen, denies any chest pain or shortness of breath. Afebrile Objective Vitals Vital Signs Date Time Temp Pulse Resp B/P Pulse Ox O2 Delivery O2 Flow Rate FiO2 10/11/16 12:00 97.8 100 16 124/72 92 10/11/16 08:24 95 Nasal Cannula 4.00 10/11/16 08:00 98.0 93 14 119/70 93 10/11/16 04:17 92 Nasal Cannula 4.00 10/11/16 04:00 98.6 90 16 124/79 94 10/11/16 00:00 96.2 100 18 105/60 95 10/10/16 23:57 96 Nasal Cannula 4.00 10/10/16 20:00 97.5 102 18 118/60 94 10/10/16 18:41 97.6 85 20 133/75 95 I/O 10/10/16 10/10/16 10/10/16 10/11/16 10/11/16 10/11/16 07:00 15:00 23:00 07:00 15:00 23:00 Intake Total 1600 ml 497 ml 480 ml 150 ml 720 ml Balance 1600 ml 497 ml 480 ml 150 ml 720 ml Intake Oral 480 ml 150 ml 720 ml IV Total 1600 ml 497 ml # Voids 3 3 1 2 1 # Bowel Movements 1 0 3 Result Diagram: 10/11/16 0655 10/11/16 0655 Imaging Last Impressions Chest X-Ray 10/10/16 0600 Signed Impressions: Service Date/Time: Monday, October 10, 2016 05:03 - CONCLUSION: No significant change. Julio Pagan Jr., MD Objective Remarks GENERAL: NAD SKIN: Warm and dry. HEAD: Normocephalic. EYES: No scleral icterus. No injection or drainage. NECK: Supple, trachea midline. No JVD or lymphadenopathy. CARDIOVASCULAR: Regular rate and rhythm without murmurs, gallops, or rubs. RESPIRATORY: Breath sounds equal bilaterally. No accessory muscle use. GASTROINTESTINAL: Abdomen soft, non-tender, nondistended. MUSCULOSKELETAL: No cyanosis, or edema. BACK: Nontender without obvious deformity. No CVA tenderness. A/P Problem List: (1) COPD with exacerbation ICD Code: J44.1 Status: Acute (2) Community acquired pneumonia ICD Code: J18.9 Status: Acute Assessment and Plan 80-year-old female with 1. COPD Exacerbation -- d/c methylprednisolone 40mg iv q12h and start by mouth prednisone 20 mg daily 10/22/16; continue Symbicort and Spiriva -- nebs q4h and q2h prn -- BiPAP as needed. -- wean o2 by NC for goal spo2 > 90% 2. RLL community acquired pneumonia -- Continue cefepime 2gm iv q8h -- continue azithromycin 500mg iv q24h -- f/u sputum cultures, blood cultures, urine cultures 3. Bipolar disorder -- continue home psych meds 4. Peripheral neuropathy -- continue home gabapentin 100mg qhs 5. Acute protein calorie malnutrition- moderate -- Past swallow eval, start healthy diet and add ensure 3 times a day with each meal 6. Prophylaxis -- SCDs, SQH -- does not meet evidence based criteria for GI prophylaxis at this time. 7. Hypotension: Continue with gentle IV fluid hydration, consider given 1 L normal saline bolus PT consult to treat and debraal True Foley MD Oct 11, 2016 16:06
[2016-10-11] MEDS ORDERED: DIPHENOXYLATE/ATROPINE 2.5 MG/0.025 MG TAB PO PRN (18:15)
[2016-10-11] MEDS: QUEtiapine FUMARATE 100 MG TAB PO SCH (20:58)
[2016-10-12] VITALS: BP 119/63; PULSE 96; RESP 18; TEMP 96.6; O2SAT 95
[2016-10-12] MEDS: HEPARIN SODIUM - SQ 10,000 UNITS/ML VIAL SQ SCH ×2 (00:08→08:27)
[2016-10-12] MEDS: CHLORHEXIDINE GLUCONATE 2 % 1 PACK (2 CLOTHS) TOP SCH (03:24)
[2016-10-12 04:00] VITALS: BP 122/61; PULSE 90; RESP 16; TEMP 96.7; O2SAT 94
[2016-10-12] MEDS: RESP: ALBUTEROL 2.5 MG/IPRATROPIUM 0.5 MG NEB (SCH) INH ×3 (04:40→11:51)
[2016-10-12] MEDS: CEFEPIME INJ 2,000 MG in SODIUM CHLORIDE 0.9% INJ 100 ML IV SCH (04:49)
[2016-10-12] MEDS: SODIUM CHLOR 0.9% 1000 ML INJ 1,000 ML IV SCH (04:50)
[2016-10-12] MEDS: INSULIN NovoLIN REGULAR SUPPLEMENTAL SCALE SQ SCH ×3 (05:17→12:00)
[2016-10-12 07:02] LABS: HEMATOCRIT 36.5 % (35.0-46.0); MEAN CELL VOLUME 89.1 FL (80.0-100.0); MEAN CORPUSCULAR HEMOGLOBIN 28.8 PG (27.0-34.0); MEAN CORPUSCULAR HGB CONC 32.4 % (32.0-36.0); PLATELET COUNT 116 TH/MM3 (150-450); RED CELL DISTRIBUTION WIDTH 14.5 % (11.6-17.2); REVIEW FLAG FINAL; WHITE BLOOD COUNT 11.1 TH/MM3 (4.0-11.0)
[2016-10-12 07:20] LABS: BICARBONATE 27.3 MEQ/L (21.0-32.0); POTASSIUM 4.3 MEQ/L (3.5-5.1)
[2016-10-12 07:34] VITALS: O2SAT 93
[2016-10-12 08:00] VITALS: BP 110/69; PULSE 85; RESP 16; TEMP 97.2; O2SAT 95
[2016-10-12] MEDS: TIOTROPIUM BROMIDE 18 MCG INH INH SCH (08:22)
[2016-10-12] MEDS: BUDESONIDE-FORMOTEROL 80/4.5 MCG INHALER INH SCH (08:22)
[2016-10-12] MEDS: ESCITALOPRAM OXALATE 20 MG TAB PO SCH (08:25)
[2016-10-12] MEDS: GABAPENTIN 100 MG CAP PO SCH ×2 (08:25→13:00)
[2016-10-12] MEDS: THIAMINE HCL 100 MG TAB PO SCH (08:25)
[2016-10-12] MEDS: lamoTRIgine 25 MG TAB PO SCH (08:25)
[2016-10-12] MEDS: ALLOPURINOL 100 MG TAB PO SCH (08:25)
[2016-10-12] MEDS: SODIUM CHLORIDE 0.9% FLUSH 5 ML FLUSH IV FLUSH SCH (08:27)
[2016-10-12] MEDS: DOCUSATE SODIUM 50 MG/SENNA 8.6 MG TAB PO SCH (08:27)
[2016-10-12] MEDS ORDERED: predniSONE 20 MG TAB PO SCH (09:00)
--- NOTE | 2016-10-12 11:02 | HHI.PR ---
Subjective Remarks Follow-up pneumonia/ 10/10/16-patient seen and examined; reports significant improvement or shortness of breath denies any cough. Currently afebrile. She thinks she does not need to use BiPAP. 10/11/16-patient seen and examined and currently on 4 L nasal cannula oxygen, denies any chest pain or shortness of breath. Afebrile 10/12/16-patient seen and examined and currently on 3.5 L nasal cannula oxygen; states she is on home oxygen and she is feeling much better now Objective Vitals Vital Signs Date Time Temp Pulse Resp B/P Pulse Ox O2 Delivery O2 Flow Rate FiO2 10/12/16 08:00 97.2 85 16 110/69 95 10/12/16 07:34 93 Nasal Cannula 3.50 10/12/16 04:00 96.7 90 16 122/61 94 10/12/16 00:00 96.6 96 18 119/63 95 10/11/16 21:24 92 Nasal Cannula 3.00 10/11/16 20:00 98.6 116 20 128/76 91 10/11/16 16:00 98.8 94 16 110/64 93 10/11/16 12:00 97.8 100 16 124/72 92 I/O 10/11/16 10/11/16 10/11/16 10/12/16 10/12/16 10/12/16 07:00 15:00 23:00 07:00 15:00 23:00 Intake Total 150 ml 720 ml 240 ml 1633 ml Output Total 250 ml Balance 150 ml 720 ml -10 ml 1633 ml Intake Oral 150 ml 720 ml 240 ml 250 ml IV Total 1383 ml Output Urine Total 250 ml # Voids 2 1 1 2 # Bowel Movements 0 3 2 0 Result Diagram: 10/12/1614 10/12/1614 Objective Remarks GENERAL: NAD SKIN: Warm and dry. HEAD: Normocephalic. EYES: No scleral icterus. No injection or drainage. NECK: Supple, trachea midline. No JVD or lymphadenopathy. CARDIOVASCULAR: Regular rate and rhythm without murmurs, gallops, or rubs. RESPIRATORY: Breath sounds equal bilaterally. No accessory muscle use. GASTROINTESTINAL: Abdomen soft, non-tender, nondistended. MUSCULOSKELETAL: No cyanosis, or edema. BACK: Nontender without obvious deformity. No CVA tenderness. A/P Problem List: (1) COPD with exacerbation ICD Code: J44.1 Status: Acute (2) Community acquired pneumonia ICD Code: J18.9 Status: Acute Assessment and Plan 80-year-old female with 1. COPD Exacerbation -- s/p methylprednisolone 40mg iv q12h and now on by mouth prednisone 20 mg daily ; continue Symbicort and Spiriva -- nebs q4h and q2h prn -- BiPAP as needed. -- wean o2 by NC for goal spo2 > 90% 2. RLL community acquired pneumonia -- Continue cefepime 2gm iv q8h -- continue azithromycin 500mg iv q24h -- f/u sputum cultures, blood cultures, urine cultures 3. Bipolar disorder -- continue home psych meds 4. Peripheral neuropathy -- continue home gabapentin 100mg qhs 5. Acute protein calorie malnutrition- moderate -- Past swallow eval, start healthy diet and add ensure 3 times a day with each meal 6. Prophylaxis -- SCDs, SQH -- does not meet evidence based criteria for GI prophylaxis at this time. 7. Hypotension: improved with gentle IV fluid hydration, consider given 1 L normal saline bolus PT consult to treat and eval True Foley MD Oct 12, 2016 11:02
--- NOTE | 2016-10-12 11:03 | HHI.DS ---
Discharge Summary Admission Date Oct 09, 2016 at 16:09 Discharge Date: Oct 12, 2016 Admitting Diagnosis pneumonia, sepsis (1) COPD with exacerbation ICD Code: J44.1 (2) Community acquired pneumonia ICD Code: J18.9 Procedures none Brief History - From Admission this is an 80yF with h/o o2 dependent COPD on 2L o2 by NC at night at home, bipolar disorder, and peripheral neuropathy after a pelvic fracture who presented with 1 week of increasing shortness of breath, fatigue, chills, weakness, fatigue, lightheadedness. She was found to have a RLL pneumonia on CXR and a leukocytosis of 18. She denies chest pain, N/V/D, syncope. She endorses fever. she states that she is fairly ambulatory and can do most all of her own ADLs except complex ones like grocery shopping. She states that she has not been doing these as much over the last week due to fatigue. Of note, over the past 12 months, she has been hospitalized a number of times for various health concerns, including a recent diagnosis of Bipolar disorder. I had a discussion with the patient about some of the goals of her care. When I brought up intubation and mechanical ventilation, she states she would not want that, as it would be uncomfortable, and she would much rather be made comfortable and in peace than undergo a course of mechanical ventilation. Also, when discussing CPR, she states she would rather naturally and not undergo CPR, if it came to that. Otherwise, our goals remain aggressive. congruent with the patient's wishes, I have made her DNR/DNI. Her would be her medical decision-maker if she were to become incapacitated, and she has documentation of this. CBC/BMP: 10/12/16 0614 10/12/16 0614 Significant Findings Laboratory Tests Test 10/09/16 10/09/16 10/09/16 10/10/16 13:53 14:30 15:11 05:53 Blood Gas HCO3 29 mmol/L 29 mmol/L (22-26) (22-26) Blood Gas Base Excess 3.1 mmol/L 4.1 mmol/L (-2-2) (-2-2) Arterial Blood pH 7.34 7.35 (7.380-7.420) (7.380-7.420) Arterial Blood Partial 55 mmHg (38-42) 54 mmHg (38-42) Pressure CO2 Arterial Blood Partial 132 mmHG Pressure O2 (61-120) Arterial Blood Methemoglobin 2.2 % (0-2) 2.2 % (0-2) White Blood Count 18.0 TH/MM3 14.0 TH/MM3 (4.0-11.0) (4.0-11.0) Platelet Count 143 TH/MM3 132 TH/MM3 (150-450) (150-450) Neutrophils (%) (Auto) 80.5 % (16.0-70.0) Monocytes (%) (Auto) 10.3 % (0.0-8.0) Neutrophils # (Auto) 14.5 TH/MM3 (1.8-7.7) Monocytes # (Auto) 1.9 TH/MM3 (0-0.9) Band Neutrophils % 31 % (0-6) Lymphocytes % 8 % (9-44) Monocytes % 10 % (0-8) Neutrophils # (Manual) 14.8 TH/MM3 (1.8-7.7) Metamyelocytes 4 % (0-1) Toxic Granulation 1+ (NORMAL) Toxic Vacuolation PRESENT (NONE SEEN) Platelet Estimate LOW (NORMAL) Prothrombin Time 14.4 SEC (9.8-11.6) Activated Partial 32.2 SEC Thromboplast Time (24.3-30.1) Sodium Level 135 MEQ/L (136-145) Chloride Level 97 MEQ/L (98-107) Blood Urea Nitrogen 21 MG/DL (7-18) 24 MG/DL (7-18) Creatinine 1.05 MG/DL (0.50-1.00) Estimat Glomerular Filtration 50 ML/MIN (>89) 81 ML/MIN (>89) Rate Random Glucose 114 MG/DL 145 MG/DL (74-106) (74-106) Lactic Acid Level 2.8 mmol/L (0.4-2.0) Total Bilirubin 1.1 MG/DL (0.2-1.0) Alkaline Phosphatase 118 U/L (45-117) Troponin I LESS THAN 0.02 NG/ML (0.02-0.05) B-Type Natriuretic Peptide 344 PG/ML (0-100) Albumin 3.1 GM/DL (3.4-5.0) Calcium Level 8.2 MG/DL (8.5-10.1) Test 10/10/16 10/11/16 10/11/16 10/12/16 06:05 01:00 06:55 06:14 Blood Gas Oxygen Saturation 89 % (90-100) Arterial Blood pH 7.30 (7.380-7.420) Arterial Blood Partial 50 mmHg (38-42) Pressure CO2 Urine Mucus FEW /lpf (OCC) White Blood Count 13.4 TH/MM3 11.1 TH/MM3 (4.0-11.0) (4.0-11.0) Platelet Count 122 TH/MM3 116 TH/MM3 (150-450) (150-450) Chloride Level 108 MEQ/L 109 MEQ/L (98-107) (98-107) Blood Urea Nitrogen 25 MG/DL (7-18) 23 MG/DL (7-18) Random Glucose 128 MG/DL (74-106) Calcium Level 8.3 MG/DL 8.4 MG/DL (8.5-10.1) (8.5-10.1) Imaging Last Impressions Chest X-Ray 10/10/16 0600 Signed Impressions: Service Date/Time: Monday, October 10, 2016 05:03 - CONCLUSION: No significant change. Julio Pagan Jr., MD PE at Discharge GENERAL: NAD SKIN: Warm and dry. HEAD: Normocephalic. EYES: No scleral icterus. No injection or drainage. NECK: Supple, trachea midline. No JVD or lymphadenopathy. CARDIOVASCULAR: Regular rate and rhythm without murmurs, gallops, or rubs. RESPIRATORY: Breath sounds equal bilaterally. No accessory muscle use. GASTROINTESTINAL: Abdomen soft, non-tender, nondistended. MUSCULOSKELETAL: No cyanosis, or edema. BACK: Nontender without obvious deformity. No CVA tenderness. Hospital Course She was admitted secondary to COPD exacerbation for which she was started on IV Solu-Medrol, bronchodilator, as well as BiPAP initially which patient refused later on. She was continued on oxygen since with saturation maintained above 90 %. Patient was also started on IV antibiotics for right lower lung pneumonia. She was given gentle IV fluid hydration secondary to hypotension with significant improvement of BP. She was continued on her treatment for other chronic medical conditions. DVT prophylaxis was provided. PT was consulted. All electrolyte abnormalities were corrected accordingly. Vitals remained stable prior to discharge. Pt Condition on Discharge: Stable Discharge Disposition: Discharge Home Discharge Time: <= 30 minutes Discharge Instructions DIET: Follow Instructions for: Heart Healthy Diet Activities you can perform: Regular-No Restrictions Follow up Referrals: PCP Follow-up - 1 Week New Medications: Azithromycin (Azithromycin) 250 Mg Tab 250 MG PO DAILY Infection #3 Ref 0 TAB Budesonide-Formoterol Inh (Symbicort Inh) 160-4.5 Mcg/Act Aero 2 PUFF INH Q12HR #1 Ref 0 INHALER Ipratropium HFA 12.9 GM Inh (Atrovent HFA 12.9 GM Inh) 17 Mcg/Act Aer 2 PUFF INH QID Breathing Treatment #1 Ref 0 INHALER Prednisone (21) 10 mg tab Dose Pack (Prednisone (21) 10 mg tab Dose Pack) 10 Mg Pack 10 MG PO DIRECTED Inflammation #1 Ref 0 DSPK Tiotropium Inh (Spiriva Handihaler) 18 Mcg Cap 18 MCG INH DAILY Breathing Treatment #30 CAP Continued Medications: Allopurinol (Allopurinol) 100 Mg Tab 100 MG PO DAILY Gout #30 Ref 0 TAB Cholecalciferol (Vitamin D3) 2,000 Unit Tab 2000 UNITS PO DAILY Nutritional Supplement #1 Ref 0 BOTTLE Diphenoxylate-Atropine (Lomotil) 2.5-0.025 Mg Tab 1 TAB PO 2-3 TIMES DAILY PRN DIARRHEA Ref 0 TAB Escitalopram (Escitalopram) 20 Mg Tab 20 MG PO DAILY #30 Ref 0 TAB Gabapentin (Gabapentin) 100 Mg Cap 100 MG PO TID #90 Ref 0 CAP Lamotrigine (Lamictal) 25 Mg Tab 50 MG PO BID Control Seizures #60 Ref 0 TAB Multiple Vitamins W/ Minerals (Theragran-M) 1 Tab 1 TAB PO DAILY Nutritional Supplement Ref 0 TAB Quetiapine (Seroquel) 50 Mg Tab 100 MG PO HS #30 Ref 0 TAB Thiamine (Vitamin B-1) 100 Mg Tab 100 MG PO DAILY Nutritional Supplement Ref 0 TAB True Foley MD Oct 12, 2016 11:03
[2016-10-12] MEDS ORDERED: AZIT250T3 PO (11:07)
[2016-10-12] MEDS ORDERED: SPIRCAP INH (11:07)
[2016-10-12] MEDS ORDERED: SYMB160A INH (11:07)
[2016-10-12] MEDS ORDERED: PRED10PA PO (11:07)
[2016-10-12] MEDS ORDERED: IPRA17I INH (11:07)
[2016-10-12 12:00] VITALS: BP 152/87; PULSE 97; RESP 16; TEMP 98.3; O2SAT 96
--- NOTE | 2016-10-22 16:11 | PQ ---
Physician Query Response Document PATIENT: OPAL RAINES : 1935 ADMIT DATE: 10/09/2016 4:09 PM DISCH DATE: 10/12/2016 1:23 PM RESPONDING PROVIDER #: Eneida QUERY TEXT: Documentation Clarification Your help is requested in clarifying the following clinical documentation in the medical record FOR S EPSIS 1) SEPSIS PRESENT ON ADMISSION 2) SEPSIS RULED OUT 3) NO SEPSIS 4) OTHER The patient's Clinical Indicators include: PER ER NOTE: She is found to be septic with a 31% bandemia and a lactic acid of 2.8 PER H Admission Diagnosis pneumonia, sepsis THERE WAS NO FURTHER MENTION OF SEPSIS, PLEASE CLARIFY IF THIS CONDITION WAS PRESENT AND TREATED CLINICAL FINDINGS ON ADMISSION: WBC= 18.0, BAND NEUTROPHILS =31%, LACTIC ACID=2.8 LMGC=932.5 ORAL, DUNCB=727, REAPIRATORY RATE =28, B/P=132/64 Query created by: Carmen Draper on 10/11/2016 8:42 AM RESPONSE TEXT: Sepsis present on admission Electronically signed by: True Foley MD 10/22/2016 4:07 PM
== END 2016-10-12 13:23 | disposition home or self-care (01) | DRG 871 ==
LOC: NEPC 13:34 → NEDA 16:09 → HIMW 22:30 → HOCA 10-10 18:10
PROVIDERS: ADMIT Internal Medicine Critical Care Medicine; ATTEND Hospitalist
DX: A41.9 Sepsis, unspecified organism (principal); J18.9 Pneumonia, unspecified organism; E44.0 Moderate protein-calorie malnutrition; J44.0 Chronic obstructive pulmonary disease with (acute) lower respiratory infection; I95.9 Hypotension, unspecified; G62.9 Polyneuropathy, unspecified; Z99.81 Dependence on supplemental oxygen; J44.1 Chronic obstructive pulmonary disease with (acute) exacerbation; F17.210 Nicotine dependence, cigarettes, uncomplicated; F31.9 Bipolar disorder, unspecified; K21.9 Gastro-esophageal reflux disease without esophagitis; Z68.23 Body mass index [BMI] 23.0-23.9, adult; Z85.3 Personal history of malignant neoplasm of breast; Z92.21 Personal history of antineoplastic chemotherapy; Z66 Do not resuscitate
CPT/HCPCS: 36600; 71010; 80048; 80053; 81001; 82805; 82948; 83605; 83880; 84484; 85007; 85027; 85610; 85730; 87040; 87070; 87205; 87641; 87804; 93005; 94002; 94150; 94640; 94664; 94667; 96374; J0456; J0692; J1644; J2920; J2930; J7030; J7050; J7512

== ENCOUNTER → 2016-11-20 | Outpatient (CLI) | payer OTHER ==
[~2016-11-20] MED LIST changes: -ALBU.5I NEB; -ALBU17I INH; +AZIT250T3 PO; +ESCI20TA PO; -FLUT50I NASAL; +IPRA17I INH; -LEXA20TA PO; -LOMO PO; +LOMO2.5T PO; -NICO21DI2 TD; +PRED10PA PO; -PRED20 PO; +SPIRCAP INH; -THERM PO; +THERTAB27 PO; -THIA100T PO; -VITA-13 PO; +VITA100T54 PO; +VITA200012 PO; -Z.0.OXYGEN INH; -ZITH250T PO
[2016-11-20 12:57] LABS: BLOOD GAS BASE EXCESS 0.3 mmol/L (-2-2); BLOOD GAS CARBOXYHEMOGLOBIN 1.5 % (0-4); BLOOD GAS HCO3 25 mmol/L (22-26); BLOOD GAS METHEMOGLOBIN 1.2 % (0-2); BLOOD GAS O2 HGB SATURATION 79 % (90-100); BLOOD GAS OXYGEN CONTENT 16.2 Vol % (12.0-20.0); BLOOD GAS PCO2 41 mmHg (38-42); BLOOD GAS PO2 49 mmHg (61-120); BLOOD GAS TOTAL HGB 14.6 G/DL (12.0-16.0); CRITICAL VALUE YES; TEMP CORR TO 98.6
[2016-11-20 12:58] LABS: DRAW SITE RT RADIAL; FIO2 21 %; NUMBER OF ARTERIAL PUNCTURES 1; STAT NO; ULNAR PULSE PRESENT
--- NOTE | 2016-11-23 10:19 | RSPPFT ---
DATE OF PROCEDURE: 11/20/16 COMMENTS: Spirometry with FVC of 1.4 at 77% of predicted, FEV1 of 0.6 at 54%, FEV1/FVC ratio is decreased. Flow is decreased at FEF 25, FEF 50, FEF 75 and FEF 25-75. There is a good response after bronchodilator treatment. Lung volumes show residual volume is increased. TLC is increased. Diffusion capacity is severely decreased. Flow volume loop indicates an obstructive pattern. Room air arterial blood gases show pH of 7.39, PCO2 of 41, PO2 of 49, BiCarb of 25 and O2 Saturation at 79%. IMPRESSION: 1. Moderately severe obstructive lung disease. 2. Positive response to acutely inhaled bronchodilator treatment. 3. Lung volumes show hyperinflation. 4. Severe loss in diffusion capacity. 5. Room air arterial blood gases show severe hypoxia.
== END ==
LOC: HRSP 12:09
PROVIDERS: ATTEND Specialist
DX: J44.9 Chronic obstructive pulmonary disease, unspecified (principal)
CPT/HCPCS: 36600; 82805; 94060; 94726; 94729